=== PATIENT | male | born 1985 | race Caucasian/White ===

== ENCOUNTER 2020-01-07 14:08 | Emergency (ER) | payer OTHER ==
[~2020-01-07] VITALS: Ht 175.3 cm; Wt 89.8 kg
--- NOTE | 2020-01-07 14:18 | NUR ---
Pt walked in to ER with c/o chest pain 2/10 now and 6/10 when he moves. Stated it started about a week ago and hasn't gone away. Denies any other medical history. V/S stable, pt is afebrile. Currently resting in bed, will continue to monitor.
--- NOTE | 2020-01-07 14:18 | NUR ---
Placed in room 6 . Placed on ic design engineer, blood pressure machine and pulse oximeter. To gown for exam. Side rails up.
[2020-01-07 14:20] VITALS: BP_SYST 147
--- NOTE | 2020-01-07 14:20 | NUR ---
EKG performed at BS by EMT. Physician given copy of EKG for review.
[2020-01-07] MEDS ORDERED: KETOROLAC TROMETHAMINE 60 MG/2 ML VIAL IM ONE (14:30)
--- NOTE | 2020-01-07 14:30 | NUR ---
ER Dr. Arevalo at bedside examining patient.
--- NOTE | 2020-01-07 14:32 | NUR ---
Administered Toradol IM as ordered by Dr. Arevalo. Patient tolerated the medications well. See eMAR for details.
--- NOTE | 2020-01-07 14:42 | NUR ---
Patient given written and verbal discharge instructions and verbalizes understanding. ER MD discussed with patient the results and treatment provided. Patient in stable condition. ID arm band removed. Rx of Motrin given. Patient educated on pain management and to follow up with PMD. Pain Scale 0/10. Opportunity for questions provided and answered. Medication side effect fact sheet provided.
[2020-01-07 14:43] VITALS: BP_SYST 147
== END 2020-01-07 14:43 | disposition home or self-care (01) ==
LOC: SED 14:08
DX: R07.89 Other chest pain (principal)
CPT/HCPCS: 93005; 96372; 99283; J1885